=== PATIENT | female | born 1995 | race Caucasian/White ===

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

== ENCOUNTER → 2017-09-16 | Outpatient (CLI) | payer BC | END | disposition home or self-care (01) | LOC: C.LABMFLN 15:50 | PROVIDERS: ATTEND Family Medicine | DX: R35.0 Frequency of micturition (principal) ==